=== PATIENT | female | born 1970 | race African-American/Black ===

== ENCOUNTER 2018-05-07 22:16 | Emergency (ER) | payer BC, OTHER | END 2018-05-08 00:30 | disposition home or self-care (01) | LOC: FTE 05-08 00:30 | DX: B34.9 Viral infection, unspecified (principal); H10.023 Other mucopurulent conjunctivitis, bilateral | CPT/HCPCS: 93005; 99283; 99283-25 ==

== ENCOUNTER 2018-08-29 18:01 | Emergency (ER) | payer BC ==
[2018-08-29] MEDS: ONDANSETRON 4 MG INJ IV (19:01)
[2018-08-29] MEDS: morphine 4 MG/ML VIAL IV (19:01)
[2018-08-29 19:03] LABS: ADD MAN DIFF? NO
[2018-08-29 19:04] LABS: BASOPHIL # 0.1 10^3/ul (0.0-0.1); BASOPHILS % 0.6 % (0.0-2.0); EOSINOPHILS # 0.1 10^3/ul (0.0-0.5); HEMATOCRIT 41.1 % (37.0-47.0); HEMOGLOBIN 13.8 g/dl (12.0-16.0); LYMPHOCYTES # 2.7 10^3/ul (0.8-2.9); LYMPHOCYTES % 26.5 % (15.0-51.0); MEAN CORPUSCULAR HEMOGLOBIN 32.8 pg (29.0-33.0); MEAN CORPUSCULAR HGB CONC 33.6 g/dl (32.0-37.0); MEAN CORPUSCULAR VOLUME 97.6 fl (82.0-101.0); MEAN PLATELET VOLUME 9.3 fl (7.4-10.4); MONOCYTE # 0.9 10^3/ul (0.3-0.9); MONOCYTES % 9.1 % (0.0-11.0); NEUTROPHIL # 6.3 10^3/ul (1.6-7.5); NEUTROPHILS % 62.5 % (39.0-77.0); PLATELET COUNT 310 10^3/UL (140-415); RED BLOOD COUNT 4.21 10^6/ul (4.20-5.40); RED CELL DISTRIBUTION WIDTH 14.5 % (11.5-14.5)
[2018-08-29 19:04] LABS: WHITE BLOOD COUNT 10.1 10^3/ul (4.8-10.8)
[2018-08-29 19:23] LABS: ALANINE AMINOTRANSFERASE 15 IU/L (13-69); ALBUMIN 4.1 g/dl (3.3-4.9); ALBUMIN/GLOBULIN RATIO 1.17; ALKALINE PHOSPHATASE 66 IU/L (42-121); ASPARTATE AMINO TRANSFERASE 24 IU/L (15-46); BILIRUBIN,INDIRECT 0.3 mg/dl (0-1.1); BILIRUBIN,TOTAL 0.3 mg/dl (0.2-1.3); BLOOD UREA NITROGEN 14 mg/dl (7-20); CALCIUM 9.2 mg/dl (8.4-10.2); CARBON DIOXIDE 23 mmol/L (21-31); CREATININE 0.78 mg/dl (0.44-1.00); Estimated GFR > 60 mL/min (>60); GLUCOSE 106 mg/dl (70-220); LIPASE 164 U/L (23-300); POTASSIUM 3.8 mmol/L (3.5-5.1); SODIUM 142 mmol/L (135-144); TOTAL PROTEIN 7.6 g/dl (6.1-8.1)
[2018-08-29 19:52] LABS: ANION GAP 11 (5-13); CHLORIDE 108 mmol/L (97-110)
[2018-08-29] MEDS: SOD CHLORIDE 0.9% 1,000 ML IV (20:39)
[2018-08-29 20:44] LABS: ADD UMIC YES; UR ASCORBIC ACID NEGATIVE (NEGATIVE); UR BACTERIA FEW /HPF (NONE SEEN); UR BILIRUBIN (Dip) NEGATIVE (NEGATIVE); UR BLOOD (Dip) 2+ mg/dL (NEGATIVE); UR CLARITY CLOUDY (CLEAR); UR COLOR YELLOW (YELLOW); UR GLUCOSE (Dip) NEGATIVE (NEGATIVE); UR KETONES (Dip) NEGATIVE (NEGATIVE); UR LEUKOCYTE ESTERASE (Dip) NEGATIVE Leu/ul (NEGATIVE); UR NITRITE (Dip) NEGATIVE (NEGATIVE); UR RBC 5 /HPF (0-5); UR SPECIFIC GRAVITY (Dip) 1.027 (1.003-1.030); UR SQUAMOUS EPITHELIAL CELL MODERATE /HPF (FEW); UR TOTAL PROTEIN (Dip) NEGATIVE (NEGATIVE); UR UROBILINOGEN (Dip) 1+ mg/dL (NEGATIVE); UR WBC 1 /HPF (0-5)
[2018-08-29] MEDS ORDERED: CEFTRIAXONE 250 MG INJ IM (21:00)
[2018-08-29] MEDS: LIDOCAINE 1% (MDV) 20 ML INJ SC (21:16)
[2018-08-29] MEDS: AZITHROMYCIN 250 MG TAB PO (21:18)
[2018-08-29] MEDS: KETOROLAC 30 MG INJ IV (21:18)
[2018-08-29] MEDS ORDERED: CEFTRIAXONE 250 MG INJ IVPB (21:30)
[2018-08-29] MEDS: SOD CHLORIDE 0.9% IVPB (21:33)
[2018-08-29] MEDS: CEFTRIAXONE IVPB (21:33)
== END 2018-08-29 22:58 | disposition home or self-care (01) ==
LOC: FTE 18:01
DX: R10.31 Right lower quadrant pain (principal)
CPT/HCPCS: 36415; 74176; 76830; 76856; 80053; 81001; 81025; 83690; 85025; 87210; 87591; 96361; 96365; 96375; 99285-25